=== PATIENT | male | born 1960 | race Caucasian/White ===

== ENCOUNTER 2021-12-24 00:34 | Inpatient (IN) | payer MEDICAID ==
[2021-12-24] VITALS (11 sets, daily range): BP systolic 110–159; BP diastolic 54–74
[~2021-12-24] VITALS: Ht 182.9 cm; Wt 67.9 kg
[2021-12-24] MEDS ORDERED: OXYCODONE W/ ACETAMINOPHEN 5/325MG TABLET PO ONE ×2 (06:15→13:30)
[2021-12-24] MEDS ORDERED: OLANZapine 5 MG TAB PO ONE (06:15)
[2021-12-24 07:14] LABS: Lymphocytes # (auto) 1.2 10 ^3/uL (0.4-5.4); Monocytes # (auto) 0.9 10 ^3/uL (0-1.3); Neutrophils # (auto) 5.2 10 ^3/uL (1.6-8.6); White Blood Cell 7.4 10^3/uL (4.4-10.8)
[2021-12-24 07:18] LABS: Basophils # (auto) 0 10 ^3/uL (0-0.2); Basophils % (auto) 0.6 % (0.0-2.0); Eosinophils # (auto) 0 10 ^3/uL (0-0.8); Eosinophils % (auto) 0.6 % (0.0-7.0); Hematocrit 17.4 % (41.0-53.0); Lymphocytes % (auto) 16.1 % (10.0-50.0); Mean Corpuscular Hemoglobin 32.7 pg (28.0-32.0); Mean Corpuscular Hgb Conc. 34.1 g/dL (32.0-36.0); Mean Corpuscular Volume 95.9 fL (80.0-100.0); Monocytes % (auto) 12.2 % (0.0-12.0); Neutrophils % (auto) 70.5 % (37.0-80.0); Nucleated Red Blood Cells % 0.2 %; Red Blood Cells 1.81 10^6/uL (4.5-5.90)
[2021-12-24 07:28] LABS: Hemoglobin 5.9 g/dL (13.5-17.5)
[2021-12-24 07:29] LABS: Albumin 2.3 g/dL (3.4-5.0); BUN/Creatinine Ratio 15.3; Calcium 8.5 mg/dL (8.5-10.1); Potassium 4.4 mmol/L (3.5-5.1)
[2021-12-24 07:33] LABS: Acetaminophen < 2.0 ug/mL (10-30); Bilirubin, Total 0.3 mg/dL (0.2-1.0); Salicylate 5.2 mg/dL (2.8-20.0); Total Protein 6.2 g/dL (6.4-8.2)
[2021-12-24] MEDS ORDERED: IOHEXOL 300 MG/ML 100ML BOTTLE IJ ONE (09:21)
[2021-12-24 10:50] LABS: Urine Bacteria NONE SEEN /hpf (None Seen); Urine Blood Negative /uL (Negative); Urine WBC 1 /hpf (0 - 3)
[2021-12-24] MEDS ORDERED: PANTOPRAZOLE 40mg/50ML NS AE 50 ML IV ONE (18:30)
[2021-12-24] MEDS ORDERED: ACETAMINOPHEN 325 MG TAB PO PRN (18:30)
[2021-12-24] MEDS ORDERED: HYDROcodone-ACET 5/325MG TAB PO PRN (18:30)
[2021-12-24] MEDS ORDERED: ONDANSETRON HCL 4 MG/2 ML VIAL IV PRN (18:30)
[2021-12-24 19:28] LABS: Basophils # (auto) 0.1 10 ^3/uL (0-0.2); Basophils % (auto) 0.9 % (0.0-2.0); Eosinophils # (auto) 0 10 ^3/uL (0-0.8); Eosinophils % (auto) 0.5 % (0.0-7.0); Hematocrit 27.5 % (41.0-53.0); Hemoglobin 9.1 g/dL (13.5-17.5); Lymphocytes # (auto) 1.1 10 ^3/uL (0.4-5.4); Lymphocytes % (auto) 15.9 % (10.0-50.0); Mean Corpuscular Hemoglobin 29.9 pg (28.0-32.0); Mean Corpuscular Volume 90.7 fL (80.0-100.0); Monocytes # (auto) 0.9 10 ^3/uL (0-1.3); Monocytes % (auto) 13.8 % (0.0-12.0); Neutrophils # (auto) 4.7 10 ^3/uL (1.6-8.6); Neutrophils % (auto) 68.9 % (37.0-80.0); Nucleated Red Blood Cells % 0.1 %; Red Blood Cells 3.03 10^6/uL (4.5-5.90); Red Cell Distribution Width 16.1 % (11.8-14.3); White Blood Cell 6.8 10^3/uL (4.4-10.8)
[2021-12-25 00:55] LABS: Basophils # (auto) 0.1 10 ^3/uL (0-0.2); Eosinophils # (auto) 0 10 ^3/uL (0-0.8); Hemoglobin 8.9 g/dL (13.5-17.5); Monocytes # (auto) 0.8 10 ^3/uL (0-1.3)
[2021-12-25 00:57] LABS: Basophils % (auto) 1.4 % (0.0-2.0); Eosinophils % (auto) 0.8 % (0.0-7.0); Hematocrit 25.5 % (41.0-53.0); Lymphocytes # (auto) 1.2 10 ^3/uL (0.4-5.4); Lymphocytes % (auto) 19.8 % (10.0-50.0); Mean Corpuscular Hemoglobin 31.3 pg (28.0-32.0); Mean Corpuscular Hgb Conc. 34.9 g/dL (32.0-36.0); Mean Corpuscular Volume 89.6 fL (80.0-100.0); Monocytes % (auto) 13.6 % (0.0-12.0); Neutrophils % (auto) 64.4 % (37.0-80.0); Nucleated Red Blood Cells % 0.1 %; Red Blood Cells 2.84 10^6/uL (4.5-5.90); Red Cell Distribution Width 15.9 % (11.8-14.3); White Blood Cell 6.2 10^3/uL (4.4-10.8)
[2021-12-25 05:00] VITALS: BP 151/85
[2021-12-25 06:02] LABS: Basophils # (auto) 0.1 10 ^3/uL (0-0.2); Eosinophils # (auto) 0 10 ^3/uL (0-0.8); Mean Corpuscular Hgb Conc. 34.2 g/dL (32.0-36.0); Monocytes # (auto) 0.8 10 ^3/uL (0-1.3); Neutrophils # (auto) 3.7 10 ^3/uL (1.6-8.6)
[2021-12-25 06:05] LABS: Basophils % (auto) 1.4 % (0.0-2.0); Eosinophils % (auto) 0.6 % (0.0-7.0); Hematocrit 26.5 % (41.0-53.0); Lymphocytes # (auto) 1.1 10 ^3/uL (0.4-5.4); Lymphocytes % (auto) 19.1 % (10.0-50.0); Mean Corpuscular Hemoglobin 30.8 pg (28.0-32.0); Monocytes % (auto) 13.6 % (0.0-12.0); Neutrophils % (auto) 65.3 % (37.0-80.0); Red Blood Cells 2.94 10^6/uL (4.5-5.90); Red Cell Distribution Width 16.2 % (11.8-14.3); White Blood Cell 5.6 10^3/uL (4.4-10.8)
[2021-12-25] MEDS ORDERED: THIAMINE 100mg/ml INJ (200mg/2ml VIAL) IV ONE (07:15)
[2021-12-25] MEDS ORDERED: LACTULOSE 20Gm/30ML SOLN PO PRN (07:15)
[2021-12-25] MEDS ORDERED: chlordiazePOXIDE HCL 25 MG CAP PO PRN (07:15)
[2021-12-25 07:31] LABS: Amylase 48 U/L (25-115); Lipase 242 U/L (73-393)
[2021-12-25] MEDS: PANTOPRAZOLE 40 MG/10 ML VIAL INJ IV SCH ×2 (08:20→22:28)
[2021-12-25] MEDS: SODIUM CHLORIDE 0.9% 1,000 ML IV SCH ×3 (08:37→19:20)
[2021-12-25 09:00] VITALS: BP 134/53
[2021-12-25 09:00] LABS: INR 1.21 (0.9-1.15); Partial Thromboplastin Time 24.2 sec (23.6-33.0)
[2021-12-25] MEDS ORDERED: HYDROcodone-ACET 5/325MG TAB PO PRN (11:45)
[2021-12-25] MEDS ORDERED: PROMETHAZINE HCL 25 MG/ML 1ML IV PRN (11:45)
[2021-12-25] MEDS: chlordiazePOXIDE HCL 5 MG CAP PO SCH ×3 (12:20→23:49)
[2021-12-25] MEDS: MORPHINE SULFATE INJ 2 MG/ml SYRG IV PRN ×2 (12:22→18:22)
[2021-12-25 12:23] LABS: Basophils # (auto) 0.1 10 ^3/uL (0-0.2); Eosinophils # (auto) 0 10 ^3/uL (0-0.8); Hemoglobin 8.8 g/dL (13.5-17.5); Monocytes # (auto) 0.8 10 ^3/uL (0-1.3); Neutrophils % (auto) 67.7 % (37.0-80.0)
[2021-12-25 12:27] LABS: Basophils % (auto) 1.1 % (0.0-2.0); Eosinophils % (auto) 0.6 % (0.0-7.0); Hematocrit 26.7 % (41.0-53.0); Lymphocytes # (auto) 0.9 10 ^3/uL (0.4-5.4); Lymphocytes % (auto) 16.4 % (10.0-50.0); Mean Corpuscular Hemoglobin 30.3 pg (28.0-32.0); Mean Corpuscular Hgb Conc. 33.2 g/dL (32.0-36.0); Mean Corpuscular Volume 91.3 fL (80.0-100.0); Monocytes % (auto) 14.2 % (0.0-12.0); Neutrophils # (auto) 3.7 10 ^3/uL (1.6-8.6); Nucleated Red Blood Cells % 0.1 %; Red Blood Cells 2.92 10^6/uL (4.5-5.90); Red Cell Distribution Width 16.5 % (11.8-14.3); White Blood Cell 5.5 10^3/uL (4.4-10.8)
[2021-12-25 13:00] VITALS: BP 152/69
[2021-12-25 17:00] VITALS: BP 141/68
[2021-12-25 19:07] LABS: Basophils # (auto) 0.1 10 ^3/uL (0-0.2); Eosinophils # (auto) 0 10 ^3/uL (0-0.8); Eosinophils % (auto) 0.8 % (0.0-7.0); Hematocrit 26.6 % (41.0-53.0); Lymphocytes # (auto) 1.1 10 ^3/uL (0.4-5.4); Lymphocytes % (auto) 19.9 % (10.0-50.0); Mean Corpuscular Hemoglobin 30.5 pg (28.0-32.0); Mean Corpuscular Hgb Conc. 33.7 g/dL (32.0-36.0); Mean Corpuscular Volume 90.4 fL (80.0-100.0); Monocytes # (auto) 0.8 10 ^3/uL (0-1.3); Monocytes % (auto) 15.1 % (0.0-12.0); Neutrophils # (auto) 3.5 10 ^3/uL (1.6-8.6); Neutrophils % (auto) 63.2 % (37.0-80.0); Nucleated Red Blood Cells % 0.1 %; Red Blood Cells 2.94 10^6/uL (4.5-5.90); White Blood Cell 5.6 10^3/uL (4.4-10.8)
[2021-12-25 22:00] VITALS: BP 150/89
[2021-12-26] VITALS (7 sets, daily range): BP systolic 124–156; BP diastolic 55–77
[2021-12-26 01:46] LABS: Hematocrit 26.8 % (41.0-53.0)
[2021-12-26] MEDS: chlordiazePOXIDE HCL 5 MG CAP PO SCH ×4 (05:44→23:43)
[2021-12-26 06:43] LABS: Basophils # (auto) 0.1 10 ^3/uL (0-0.2); Eosinophils # (auto) 0.1 10 ^3/uL (0-0.8); Lymphocytes # (auto) 1.2 10 ^3/uL (0.4-5.4); Monocytes # (auto) 0.8 10 ^3/uL (0-1.3)
[2021-12-26 06:45] LABS: Basophils % (auto) 1.3 % (0.0-2.0); Eosinophils % (auto) 1.1 % (0.0-7.0); Hematocrit 28.6 % (41.0-53.0); Hemoglobin 9.5 g/dL (13.5-17.5); Lymphocytes % (auto) 23.9 % (10.0-50.0); Mean Corpuscular Hemoglobin 30.2 pg (28.0-32.0); Mean Corpuscular Hgb Conc. 33.1 g/dL (32.0-36.0); Mean Corpuscular Volume 91.3 fL (80.0-100.0); Monocytes % (auto) 15.1 % (0.0-12.0); Neutrophils # (auto) 2.9 10 ^3/uL (1.6-8.6); Neutrophils % (auto) 58.6 % (37.0-80.0); Red Blood Cells 3.14 10^6/uL (4.5-5.90); Red Cell Distribution Width 16.5 % (11.8-14.3)
[2021-12-26 07:04] LABS: Potassium 3.9 mmol/L (3.5-5.1)
[2021-12-26 07:12] LABS: Albumin 2.1 g/dL (3.4-5.0); BUN/Creatinine Ratio 11.3; Bilirubin, Total 0.3 mg/dL (0.2-1.0); Calcium 8.1 mg/dL (8.5-10.1); Total Protein 6.1 g/dL (6.4-8.2)
[2021-12-26] MEDS: SODIUM CHLORIDE 0.9% 1,000 ML IV SCH ×3 (08:49→23:15)
[2021-12-26] MEDS ORDERED: NALOXONE HCL 0.4 MG/ML VIAL ONE (10:05)
[2021-12-26] MEDS ORDERED: FLUMAZENIL 0.1 MG/ML INJ 10ML MDV IV ONE (10:05)
[2021-12-26] MEDS ORDERED: LIDOCAINE VISCOUS 2% 15ML UD ONE (10:05)
[2021-12-26] MEDS ORDERED: SODIUM CHLORIDE LOCK 10 ML ONE (10:05)
[2021-12-26] MEDS ORDERED: diphenhdrAMINE HCL 50 MG/1 ML VL ONE (10:06)
[2021-12-26] MEDS: MIDAZOLAM HCL 5 MG/ML-1ML VIAL ONE ×2 (10:16→10:19)
[2021-12-26] MEDS: fentaNYL CITRATE 100 MCG/2 ML VL ONE ×2 (10:16→10:19)
[2021-12-26] MEDS: SUCRALFATE 1 GM/10 ML ORAL SUSP PO SCH ×3 (13:09→21:14)
[2021-12-26] MEDS: THIAMINE 100mg/ml INJ (200mg/2ml VIAL) IV SCH (13:13)
[2021-12-26] MEDS ORDERED: LIDOCAINE 5% TOPICAL PATCH TOP ONE (16:30)
[2021-12-26] MEDS: PANTOPRAZOLE 40 MG TAB PO SCH (21:14)
[2021-12-26] MEDS: MORPHINE SULFATE INJ 2 MG/ml SYRG IV PRN (21:28)
[2021-12-27 05:00] VITALS: BP 146/60
[2021-12-27] MEDS: chlordiazePOXIDE HCL 5 MG CAP PO SCH ×2 (06:54→11:45)
[2021-12-27] MEDS: SUCRALFATE 1 GM/10 ML ORAL SUSP PO SCH ×3 (06:54→17:00)
[2021-12-27] MEDS: SODIUM CHLORIDE 0.9% 1,000 ML IV SCH ×2 (07:15→15:15)
[2021-12-27 08:00] VITALS: BP 156/83
[2021-12-27 09:00] VITALS: BP 156/83
[2021-12-27] MEDS: THIAMINE 100mg/ml INJ (200mg/2ml VIAL) IV SCH (09:49)
[2021-12-27] MEDS: PANTOPRAZOLE 40 MG TAB PO SCH (09:50)
[2021-12-27] MEDS ORDERED: LIDOCAINE 5% TOPICAL PATCH TOP SCH (10:00)
[2021-12-27 13:00] VITALS: BP 147/76
[2021-12-27 16:12] VITALS: BP 147/76
== END 2021-12-27 17:54 | disposition still patient (30) | DRG 368 ==
LOC: ER 00:34 → EDBD 00:34 → TELE 18:23 → TELE-CENTR 19:55
PROVIDERS: ADMIT Internal Medicine; ATTEND Internal Medicine
PROC: 30233N1 Transfusion of Nonautologous Red Blood Cells into Peripheral Vein, Percutaneous Approach (ICD-10-PCS; principal; 2021-12-24)
PROC: 0DB78ZX Excision of Stomach, Pylorus, Via Natural or Artificial Opening Endoscopic, Diagnostic (ICD-10-PCS; 2021-12-26)
DX: K20.91 Esophagitis, unspecified with bleeding (principal); J18.9 Pneumonia, unspecified organism; S22.42XA Multiple fractures of ribs, left side, initial encounter for closed fracture; S27.321A Contusion of lung, unilateral, initial encounter; F20.9 Schizophrenia, unspecified; D64.9 Anemia, unspecified; F17.210 Nicotine dependence, cigarettes, uncomplicated; X58.XXXA Exposure to other specified factors, initial encounter; M19.90 Unspecified osteoarthritis, unspecified site; Z20.822 Contact with and (suspected) exposure to COVID-19; M10.9 Gout, unspecified; K20.90 Esophagitis, unspecified without bleeding; K44.9 Diaphragmatic hernia without obstruction or gangrene; Z91.14 Patient's other noncompliance with medication regimen; Z79.899 Other long term (current) drug therapy; Y93.89 Activity, other specified; Y92.89 Other specified places as the place of occurrence of the external cause; Y99.8 Other external cause status
CPT/HCPCS: 36415; 70450; 71045; 71260; 72125; 74177; 80053; 80329; 81001; 82150; 83690; 85014; 85018; 85025; 85610; 85730; 86850; 86900; 86901; 86920; 93005; 96365; 99291; C9113; G0378; J2250